=== PATIENT | female | born 1975 | race Two or more races ===

== ENCOUNTER → 2020-03-19 12:58 | Outpatient (BNVA) | payer OTHER, SELFPAY | PROVIDERS: PCP Radiology Diagnostic Radiology; Visit Provider Orthopaedic Surgery | DX: S83.004D Unspecified dislocation of right patella, subsequent encounter (principal) | CPT/HCPCS: 99213 ==

== ENCOUNTER → 2020-04-08 09:48 | Outpatient (BNVA) | payer OTHER, SELFPAY | PROVIDERS: PCP Internal Medicine; Visit Provider Orthopaedic Surgery | DX: Z76.89 Persons encountering health services in other specified circumstances (principal) ==

== ENCOUNTER → 2020-04-16 11:10 | Outpatient (BNVA) | payer OTHER, SELFPAY | PROVIDERS: PCP Internal Medicine; Referring Provider Internal Medicine; Visit Provider Orthopaedic Surgery | DX: S83.004D Unspecified dislocation of right patella, subsequent encounter (principal); M22.2X2 Patellofemoral disorders, left knee | CPT/HCPCS: 99212 ==